=== PATIENT | male | born 2005 | race Caucasian/White ===

== ENCOUNTER 2025-02-28 19:49 | Emergency (ER) | payer OTHER ==
[~2025-02-28] VITALS: Ht 180.3 cm; Wt 93.9 kg
[2025-02-28] MEDS: acetaminophen 325mg tablet PO ONE (21:28)
[2025-02-28 21:57] VITALS: BP 120/80; PULSE 60; RESP 18; TEMP 98.6; O2SAT 99
== END 2025-02-28 21:58 | disposition home or self-care (01) ==
LOC: ER 19:50
DX: S60.221A Contusion of right hand, initial encounter (principal); W19.XXXA Unspecified fall, initial encounter; Y93.44 Activity, trampolining; Y92.89 Other specified places as the place of occurrence of the external cause; Y99.8 Other external cause status
CPT/HCPCS: 29125; 73130; 99283; A6449